=== PATIENT | male | born 1950 | race Caucasian/White ===

== ENCOUNTER → 2019-07-01 | Outpatient (CLI) | payer MEDICARE, OTHER ==
--- NOTE | 2019-07-01 13:18 | RAD ---
RS Compliance Statement: One or more of the following individualized dose reduction techniques were utilized for this examination: 1. Automated exposure control 2. Adjustment of the mA and/or kV according to patient size 3. Use of iterative reconstruction technique CT head without contrast 07/01/2019 12:00 AM INDICATION: Left foot drop COMPARISON: None available TECHNIQUE: Multiple axial CT images of the head were obtained from skull base through the vertex without intravenous contrast. FINDINGS: Head: Ventricles, sulci and basal cisterns are within normal limits. There is no hydrocephalus. Tejada-white matter differentiation is normal. There is no acute intracranial hemorrhage. There is no mass, mass effect or midline shift. Posterior fossa is normal in appearance. Visualized portions of the orbits are normal. This complete opacification of the right maxillary sinus with expansion of the sinus as may be seen with mucocele. Moderate opacification of the right anterior ethmoid air cells. Mastoid air cells are well aerated. Scalp and calvaria are normal. IMPRESSION: No acute intracranial hemorrhage. Complete opacification of the right maxillary sinus and mild expansion of the sinuses may be seen with mucocele or alternate sinonasal mass. If there is persistent clinical concern, further evaluation with direct visualization or MRI of the face with without contrast may be of benefit. Electronically signed by: Mehnaz Ashley MD (07/01/2019 1:15 PM) [id number]
== END | disposition home or self-care (01) ==
LOC: PMG 12:45
PROVIDERS: ATTEND Family Medicine
DX: J34.89 Other specified disorders of nose and nasal sinuses (principal); M21.372 Foot drop, left foot
CPT/HCPCS: 70450

== ENCOUNTER → 2020-08-11 | Outpatient (CLI) | payer MEDICARE ==
--- NOTE | 2020-08-11 09:45 | RAD ---
XR [id number]_LT 1-2 VIEWS DATE: 08/11/2020 9:15 AM INDICATION: Pain COMPARISON: None. FINDINGS: Bones: There is no evidence of acute fracture or dislocation. Joints: Mild medial compartment degenerative joint space narrowing. There is no joint effusion. Miscellaneous: None. IMPRESSION: No acute osseous abnormality. Mild medial compartment degenerative changes. Electronically signed by: Jcarlos Ho MD (08/11/2020 9:43 AM) [id number]
== END ==
LOC: PMG 09:04
PROVIDERS: ATTEND Physician Assistant
DX: M25.562 Pain in left knee (principal)
CPT/HCPCS: 73560

== ENCOUNTER → 2021-01-17 | Day surgery (SDC) | payer BC, MEDICARE ==
[~2021-01-17] MED LIST: ACETAMINOPHEN 325 MG TABLET PO PRN; ALBUTEROL SULFATE 2.5 MG/3 ML NEBU. NEB PRN; ASPI-630 PO; ATOR40TA PO; ATROPINE 0.5 MG/5 ML DISP.SYRIN. IV PRN; CELE200C PO; FINA5TAB4 PO; FLUT50DI IH; IV RINGERS SOLUTION,LACTATED 1,000 ML IV SCH; LIDOCAINE 1%/EPI 1:100,000 20 ML VIAL. IJ ONE; LIDOCAINE 1%/EPI 1:200,000 PF 30 ML VIAL. ONE; LISI-517 PO; METF500T16 PO; MIDAZOLAM HCL PF 2 MG/2 ML VIAL. IV PRN; MIDAZOLAM HCL PF 2 MG/2 ML VIAL. ONE; ONDANSETRON PF 4 MG/2 ML VIAL. IV PRN; OXYMETAZOLINE 0.05% NASAL SPRAY 30ML BOTTLE. NS ONE; PHENOL ORAL SPRAY 177ML BOTTLE. MM PRN; PROPOFOL 10,000 MCG/ML (20ML) VIAL IV ONE; SERT50TA PO; TAMS0.4C97 PO; diphenhydrAMINE 50 MG/ML VIAL IV PRN
--- NOTE | 2021-01-17 11:41 | OP ---
DATE OF SURGERY: 01/17/2021 PREOPERATIVE DIAGNOSIS: Nasal obstruction with inferior nasal turbinate hypertrophy and a history of Afrin use. POSTOPERATIVE DIAGNOSIS: Nasal obstruction with inferior nasal turbinate hypertrophy and a history of Afrin use. PROCEDURE PERFORMED: Radiofrequency reduction of both inferior nasal turbinates. INDICATIONS: Chronic nasal obstruction. ANESTHESIA: General anesthetic. ESTIMATED BLOOD LOSS: Less than 10 mL DESCRIPTION OF PROCEDURE: The patient was brought to the operating room and placed on the operating room table in supine position. He was given sedating medication. His nose was decongested and suctioned of mucus. 2% lidocaine with epinephrine was injected into the anterior segment of each inferior turbinate, after which normal saline was injected into the inferior turbinate to provide body and expansion. The nasal inferior turbinates were then treated by placing a radiofrequency probe from a Coblation unit into the body of the inferior turbinate and applying radiofrequency energy, which resulted in contraction of the soft tissue of the turbinate that was completed on both sides, after which the inferior turbinates were outfractured and cottonoids placed in the nose to absorb excess mucus and to control minor bleeding, which occurred after placement of the radiofrequency probe. The cottonoids were then removed. The nose was irrigated. No active bleeding was occurring. The nasopharynx was suctioned free of blood. The procedure was completed. The patient was recovered from his anesthesia and taken to recovery room in stable condition. GREGORY DR: Dony TID: [id number]
[2021-01-17 11:56] VITALS: BP 148/89
== END | disposition home or self-care (01) ==
LOC: SURG 09:06
PROVIDERS: ATTEND Otolaryngology
DX: J34.89 Other specified disorders of nose and nasal sinuses (principal); J34.3 Hypertrophy of nasal turbinates; I10 Essential (primary) hypertension; E66.9 Obesity, unspecified; F41.9 Anxiety disorder, unspecified; E11.9 Type 2 diabetes mellitus without complications; Z79.899 Other long term (current) drug therapy; Z79.84 Long term (current) use of oral hypoglycemic drugs
CPT/HCPCS: 30801; 82947; J2250; J3010; J7120; J2704